=== PATIENT | female | born 1980 ===

== ENCOUNTER 2020-07-13 14:01 | Emergency (ER) | payer MEDICARE, MEDICAID ==
--- NOTE | 2020-07-13 15:06 | EDM.PDOC ---
ED HPI GENERAL MEDICAL PROBLEM - General Chief Complaint: Lower Extremity Injury/Pain Stated Complaint: CHEMICAL RO ON FEET Time Seen by Provider: 07/13/20 15:00 Source of Information: Reports: Patient, Family, RN, RN Notes Reviewed History Limitations: Reports: Physical Impairment (Mental disability at baseline) - History of Present Illness INITIAL COMMENTS - FREE TEXT/NARRATIVE: Patient presents to the ED via personal vehicle with mother for complaints of pain to tops of bilateral feet. The patient reports a history of mental disability and has [facility] staff who assist her with her daily needs. The patient states she has been treating a fungal infection of her feet with bleach and Epsom salt bath for 20 minutes at a time, per her current [facility] care staff. She has performed this treatment 5 times over the past 3 days. She now presents with erythema to the dorsal aspect of both feet. Her mother has applied aloe gel to both of her feet with little alleviation of symptoms. The patient denies loss of motor or sensory function to her bilateral lower extremities. Bilateral Lower Foot Pain Score (Numeric/FACES): 10 - Related Data Allergies Allergy/AdvReac Type Severity Reaction Status Date / Time erythromycin base Allergy Hives Verified 07/13/20 14:27 Home Meds: Home Meds Acetaminophen [Tylenol Extra Strength] 500 mg PO BID 07/13/20 [History] Calcium Carbonate [Calcium] 500 mg PO DAILY 07/13/20 [History] Carbamide Peroxide [Debrox 6.5% Otic Soln] 5 drop EARBOTH BID 07/13/20 [History] Cyclobenzaprine [Flexeril] 10 mg PO DAILY 07/13/20 [History] Lidocaine 1 patch TOP DAILY 07/13/20 [History] Lurasidone HCl [Latuda] 120 mg PO DAILY 07/13/20 [History] lisinopriL [Lisinopril] 1.25 mg PO DAILY 07/13/20 [History] polyethylene glycoL 3350 [Polyethylene Glycol 3350] 18 gm PO DAILY 07/13/20 [History] Past Medical History HEENT History: Reports: None Cardiovascular History: Reports: Hypertension Respiratory History: Reports: None Gastrointestinal History: Reports: None Genitourinary History: Reports: None 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 Musculoskeletal History: Reports: None Neurological History: Reports: None Psychiatric History: Reports: Learning Disability, Other (See Below) Other Psychiatric History: conduct disorder Endocrine/Metabolic History: Reports: None Hematologic History: Reports: None Immunologic History: Reports: None Oncologic (Cancer) History: Reports: None - Infectious Disease History Infectious Disease History: Reports: None - Past Surgical History Head Surgeries/Procedures: Reports: None Social & Family History - Family History Family Medical History: No Pertinent Family History - Tobacco Use Tobacco Use Status *Q: Never Tobacco User - Caffeine Use Caffeine Use: Reports: Coffee, Soda - Recreational Drug Use Recreational Drug Use: No Review of Systems - Review of Systems Review Of Systems: Comprehensive ROS is negative, except as noted in HPI. ED EXAM, GENERAL - Physical Exam Exam: See Below Exam Limited By: Other (Cognitive deficits; Mother at bedside) General Appearance: Alert, No Apparent Distress Throat/Mouth: Normal Inspection, Normal Voice, No Airway Compromise Head: Atraumatic, Normocephalic Neck: Normal Inspection, Supple, Non-Tender, Full Range of Motion Respiratory/Chest: No Respiratory Distress, Lungs Clear, Normal Breath Sounds, No Accessory Muscle Use, Chest Non-Tender Cardiovascular: Normal Peripheral Pulses, Regular Rate, Rhythm, No Edema, No Gallop, No JVD, No Murmur, No Rub, Tachycardia Peripheral Pulses: 1+: Posterior Tibial (L), Posterior Tibial (R), 2+: Radial (L), Radial (R), Dorsalis Pedis (L), Dorsalis Pedis (R) GI/Abdominal: Normal Bowel Sounds, Soft, No Distention, No Mass, Pelvis Stable Back Exam: Normal Inspection, Full Range of Motion Extremities: Normal Range of Motion, No Pedal Edema, Normal Capillary Refill, Leg Pain (To bilateral dorsal aspect of feet; Erythematous rash appreciated; No open wounds ), Increased Warmth, Redness (To bilateral dorsal aspect of feet, extending anteriorly to ankles) Neurological: Alert, Oriented, CN II-XII Intact, Normal Gait, Inattentive, Slow to Respond Psychiatric: Normal Affect, Normal Mood Skin Exam: Warm, Dry, Intact, Erythema (To bilateral dorsal aspect of feet, extending anteriorly to ankles), Increased Warmth (To bilateral dorsal aspect of feet, extending anteriorly to ankles), Rash (Nonvesicular erythema, no lesions appreciated) Course - Vital Signs Last Recorded V/S: Last Vital Signs Temp 97.2 F 07/13/20 14:15 Pulse 110 H 07/13/20 14:15 Resp 20 07/13/20 14:15 BP 114/94 H 07/13/20 14:15 Pulse Ox 97 07/13/20 14:15 - Re-Assessments/Exams Free Text/Narrative Re-Assessment/Exam: 07/13/20 Discussed supportive cares for contact dermatitis related to chemicals with mother, as well as instructions provided on [facility] sheet. Reviewed importance of avoiding additional chemicals as skin heals; noted this will take a few days to notice improvement in superficial rash. Red flag signs and symptoms which would warrant reevaluation reviewed. Patient's mother verbalized understanding and agreement with the plan of care. Departure - Departure Time of Disposition: 15:05 Disposition: Home, Self-Care 01 Condition: Good Clinical Impression: Contact dermatitis due to chemicals - Discharge Information *PRESCRIPTION DRUG MONITORING PROGRAM REVIEWED*: Not Applicable *COPY OF PRESCRIPTION DRUG MONITORING REPORT IN PATIENT DOMI: Not Applicable Instructions: Contact Dermatitis Forms: ED Department Discharge Additional Instructions: 1. See [facility] consult form for instructions. Sepsis Event Note (ED) - Evaluation Sepsis Screening Result: No Definite Risk
== END 2020-07-13 15:10 | disposition home or self-care (01) ==
LOC: DL.ED 14:01
DX: L25.3 Unspecified contact dermatitis due to other chemical products (principal); I10 Essential (primary) hypertension; Z79.899 Other long term (current) drug therapy; Z88.1 Allergy status to other antibiotic agents
CPT/HCPCS: 99283

== ENCOUNTER 2020-08-11 18:36 | Emergency (ER) | payer MEDICARE, MEDICAID ==
--- NOTE | 2020-08-11 18:56 | EDM.PDOC ---
ED HPI GENERAL MEDICAL PROBLEM - General Stated Complaint: FELL AND INJURED ANKLE Time Seen by Provider: 08/11/20 20:23 Source of Information: Reports: Patient History Limitations: Reports: No Limitations - History of Present Illness INITIAL COMMENTS - FREE TEXT/NARRATIVE: ED per wheel chair with c/o pain to right ankle, rolled ankle walking form apartment at approximately 1830 did not hit head, Left hand sore earlier but not now. no other injury. Prior remote injury to right ankle. Right Ankle Pain Score (Numeric/FACES): 10 - Related Data Allergies Allergy/AdvReac Type Severity Reaction Status Date / Time erythromycin base Allergy Hives Verified 08/11/20 19:05 Home Meds: Home Meds Acetaminophen [Tylenol Extra Strength] 500 mg PO BID 07/13/20 [History] Calcium Carbonate [Calcium] 500 mg PO DAILY 07/13/20 [History] Carbamide Peroxide [Debrox 6.5% Otic Soln] 5 drop EARBOTH BID 07/13/20 [History] Cyclobenzaprine [Flexeril] 10 mg PO DAILY 07/13/20 [History] Lidocaine 1 patch TOP DAILY 07/13/20 [History] Lurasidone HCl [Latuda] 120 mg PO DAILY 07/13/20 [History] lisinopriL [Lisinopril] 1.25 mg PO DAILY 07/13/20 [History] polyethylene glycoL 3350 [Polyethylene Glycol 3350] 18 gm PO DAILY 07/13/20 [History] Past Medical History HEENT History: Reports: None Cardiovascular History: Reports: Hypertension Respiratory History: Reports: None Gastrointestinal History: Reports: None Genitourinary History: Reports: None 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 Musculoskeletal History: Reports: None Neurological History: Reports: None Psychiatric History: Reports: Learning Disability, Other (See Below) Other Psychiatric History: conduct disorder Endocrine/Metabolic History: Reports: None Hematologic History: Reports: None Immunologic History: Reports: None Oncologic (Cancer) History: Reports: None - Infectious Disease History Infectious Disease History: Reports: None - Past Surgical History Head Surgeries/Procedures: Reports: None Social & Family History - Family History Family Medical History: No Pertinent Family History - Caffeine Use Caffeine Use: Reports: Coffee, Soda Review of Systems - Review of Systems Review Of Systems: Comprehensive ROS is negative, except as noted in HPI. ED EXAM, GENERAL - Physical Exam Exam: See Below Exam Limited By: No Limitations General Appearance: Alert, No Apparent Distress Eye Exam: Bilateral Eye: EOMI, PERRL Ears: Normal External Exam, Hearing Grossly Normal Nose: Normal Inspection Throat/Mouth: Normal Inspection Head: Atraumatic, Normocephalic Neck: Normal Inspection Respiratory/Chest: No Respiratory Distress, Normal Breath Sounds Cardiovascular: Regular Rate, Rhythm Extremities: Joint Swelling (minimal right lateral ankle), Limited Range of Motion (pain flexion and external rotation), Other (No bruising or swelling left wrist, no pain with palpation full ROM) Neurological: Alert, Oriented. No: Normal Cognition (DD) Psychiatric: Normal Mood Skin Exam: Warm, Dry, Intact, Normal Color Course - Vital Signs Last Recorded V/S: Last Vital Signs Temp 97.6 F 08/11/20 19:06 Pulse 122 H 08/11/20 19:06 Resp 16 08/11/20 19:06 BP 100/45 L 08/11/20 19:06 Pulse Ox 100 08/11/20 19:06 - Re-Assessments/Exams Free Text/Narrative Re-Assessment/Exam: 08/11/20 20:25 Harley wrap to ankle Instructions to intelligence applications Departure - Departure Time of Disposition: 20:19 Disposition: Home, Self-Care 01 Condition: Good Clinical Impression: Right ankle sprain Qualifiers: Encounter type: initial encounter Involved ligament of ankle: unspecified ligament Qualified Code(s): S93.401A - Sprain of unspecified ligament of right ankle, initial encounter - Discharge Information *PRESCRIPTION DRUG MONITORING PROGRAM REVIEWED*: No *COPY OF PRESCRIPTION DRUG MONITORING REPORT IN PATIENT DOMI: No Instructions: Ankle Sprain, [id number] Additional Instructions: ice rest elevate harley wrap clinic folow up next week if not improving alternate tylenol 500mg and ibuprofen 400mg every 4 hours as needed for discomfort Sepsis Event Note (ED) - Focused Exam Vital Signs: Vital Signs Temp Pulse Resp BP Pulse Ox 08/11/20 19:06 97.6 F 122 H 16 100/45 L 100
--- NOTE | 2020-08-11 19:42 | CR ---
PROCEDURE INFORMATION: Exam: XR Right Ankle Exam date and time: 08/11/2020 7:14 PM Age: 40 years old Clinical indication: Injury or trauma; Fall; Blunt trauma; Ankle; Right; Additional info: Fall, pain TECHNIQUE: Imaging protocol: XR Right ankle. Views: 3 or more views. COMPARISON: No relevant prior studies available. FINDINGS: Bones/joints: Normal. Soft tissues: Normal. IMPRESSION: No acute findings.
== END 2020-08-11 20:28 | disposition home or self-care (01) ==
LOC: DL.ED 18:36
DX: S93.401A Sprain of unspecified ligament of right ankle, initial encounter (principal); I10 Essential (primary) hypertension; Z79.899 Other long term (current) drug therapy; Z88.1 Allergy status to other antibiotic agents; W10.1XXA Fall (on)(from) sidewalk curb, initial encounter; Y93.01 Activity, walking, marching and hiking
CPT/HCPCS: 73610-RT; 99282; 99283-25

== ENCOUNTER 2022-08-01 06:27 | Day surgery (SDC) | payer MEDICARE, MEDICAID ==
[~2022-08-01 06:27] MED LIST: Dextrose 5%-0.45% NaCl 1,000 ML IV SCH; Sodium Chloride 0.9% 10 ML Syringe FLUSH PRN; Sodium Chloride 0.9% 10 ML Syringe FLUSH SCH
[2022-08-01] MEDS ORDERED: Midazolam 1 MG/ML 2 ML SDV ONE (07:37)
[2022-08-01] MEDS ORDERED: fentaNYL 100 MCG/2 ML SDV ONE (07:37)
[2022-08-01] MEDS ORDERED: fentaNYL 100 MCG/2 ML SDV IV ONE ×2 (07:43→07:44)
[2022-08-01] MEDS ORDERED: Midazolam 1 MG/ML 2 ML SDV IV ONE ×2 (07:44→07:45)
== END 2022-08-01 09:35 | disposition home or self-care (01) ==
LOC: DL.ENDO 06:27
PROVIDERS: ATTEND Internal Medicine Gastroenterology
DX: K20.0 Eosinophilic esophagitis (principal); K31.7 Polyp of stomach and duodenum; K31.89 Other diseases of stomach and duodenum; I10 Essential (primary) hypertension; F41.1 Generalized anxiety disorder; G47.33 Obstructive sleep apnea (adult) (pediatric); Z88.1 Allergy status to other antibiotic agents
CPT/HCPCS: 81025; 87077; 88305; J2250; J3010; J7042

== ENCOUNTER 2022-08-04 05:32 | Day surgery (SDC) | payer MEDICARE, MEDICAID ==
[~2022-08-04 05:32] MED LIST changes: -Dextrose 5%-0.45% NaCl 1,000 ML IV SCH
[2022-08-04] MEDS ORDERED: Dextrose 5%-0.45% NaCl 1,000 ML IV SCH (06:00)
[2022-08-04] MEDS ORDERED: fentaNYL 100 MCG/2 ML SDV ONE (06:26)
[2022-08-04] MEDS ORDERED: Midazolam 1 MG/ML 2 ML SDV ONE (06:26)
[2022-08-04] MEDS ORDERED: fentaNYL 100 MCG/2 ML SDV IV ONE ×2 (06:31→06:32)
[2022-08-04] MEDS ORDERED: Midazolam 1 MG/ML 2 ML SDV IV ONE ×7 (06:32→06:44)
== END 2022-08-04 08:21 | disposition home or self-care (01) ==
LOC: DL.ENDO 05:32
PROVIDERS: ATTEND Internal Medicine Gastroenterology
DX: K59.00 Constipation, unspecified (principal); R10.9 Unspecified abdominal pain; K64.8 Other hemorrhoids; I10 Essential (primary) hypertension; F41.1 Generalized anxiety disorder; G47.33 Obstructive sleep apnea (adult) (pediatric); F79 Unspecified intellectual disabilities; E66.09 Other obesity due to excess calories; Z98.890 Other specified postprocedural states; Z68.36 Body mass index [BMI] 36.0-36.9, adult
CPT/HCPCS: 45378; J2250; J3010; J7042

== ENCOUNTER 2022-10-22 21:10 | Emergency (ER) | payer MEDICARE, MEDICAID ==
[2022-10-22] MEDS ORDERED: Ibuprofen 600 MG Tab PO ONE (22:31)
== END 2022-10-22 23:12 | disposition home or self-care (01) ==
LOC: DL.ED 21:10
DX: M54.50 Low back pain, unspecified (principal); I10 Essential (primary) hypertension; Z88.1 Allergy status to other antibiotic agents; Z79.899 Other long term (current) drug therapy
CPT/HCPCS: 99283; A9270

== ENCOUNTER 2023-06-12 17:35 | Emergency (ER) | payer MEDICARE, MEDICAID ==
[2023-06-12] MEDS: Orphenadrine 60 MG/2 ML Inj IM ONE (18:22)
[2023-06-12] MEDS: Dexamethasone 4 MG/ML SDV IM ONE (18:23)
== END 2023-06-12 18:30 | disposition home or self-care (01) ==
LOC: DL.ED 17:35
DX: M54.42 Lumbago with sciatica, left side (principal); I10 Essential (primary) hypertension; Z79.899 Other long term (current) drug therapy; Z88.1 Allergy status to other antibiotic agents
CPT/HCPCS: 96372; 99283; J1100; J2360